=== PATIENT | male | born 1940 | race Caucasian/White ===

== ENCOUNTER 2021-11-15 08:40 | Observation (INO) | payer MEDICARE, OTHER ==
[~2021-11-15] VITALS: Ht 160 cm; Wt 71.7 kg
[2021-11-15 09:29] LABS: BASOPHILS % 0.3 % (0.0-1.0); EOSINOPHILS # (AUTO) 0.2 (0.0-0.4); EOSINOPHILS % 3.3 % (0.0-6.0); HEMATOCRIT 36.9 % (38.2-49.6); HEMOGLOBIN 11.7 g/dL (14.0-18.0); LYMPHOCYTES % 16.8 % (18.0-39.1); MEAN CORPUSCULAR HEMOGLOBIN 30.4 pg (28-32); MEAN CORPUSCULAR HGB CONC 31.7 g/dL (31-35); MEAN CORPUSCULAR VOLUME 95.8 fL (81-99); MONOCYTES # (AUTO) 0.7 (0.2-0.8); MONOCYTES % 10.9 % (4.4-11.3); NEUTROPHILS # (AUTO) 4.1 (2.1-6.9); NEUTROPHILS % 68.2 % (38.7-80.0); PLATELET COUNT 171 x10e3/uL (140-360); RED BLOOD COUNT 3.85 x10e6/uL (4.3-5.7); RED CELL DISTRIBUTION WIDTH 13.1 % (11.7-14.4)
[2021-11-15 09:40] LABS: INR 0.93; PROTHROMBIN TIME 13.3 seconds (11.9-14.5)
[2021-11-15 09:41] LABS: PARTIAL THROMBOPLASTIN TIME 25.8 seconds (23.8-35.5)
[2021-11-15 09:51] LABS: ALANINE AMINOTRANSFERASE 18 IU/L (0-55); ALBUMIN 3.5 g/dL (3.5-5.0); ALBUMIN/GLOBULIN RATIO 0.9 (0.8-2.0); ALKALINE PHOSPHATASE 69 IU/L (40-150); ANION GAP 14.4 mmol/L (8-16); BLOOD UREA NITROGEN 26 mg/dL (7-26); BUN/CREATININE RATIO 16 (6-25); CALCIUM 8.9 mg/dL (8.4-10.2); CARBON DIOXIDE 26 mmol/L (22-29); CHLORIDE 104 mmol/L (98-107); CREATINE KINASE 65 IU/L (30-200); CREATININE, SERUM 1.64 mg/dL (0.72-1.25); GLUCOSE 133 mg/dL (74-118); MAGNESIUM 2.2 MG/DL (1.3-2.1); POTASSIUM 4.4 mmol/L (3.5-5.1); SODIUM 140 mmol/L (136-145)
[2021-11-15] MEDS ORDERED: SODIUM CHLORIDE 0.9% 1000ML 1,000 ML IV SCH (11:30)
[2021-11-15 17:56] LABS: CREATINE KINASE MB 1.5 ng/mL (0-5.0)
[2021-11-15 19:00] VITALS: BP 130/51
[2021-11-15] MEDS ORDERED: ARICEPT10 MG PO (19:41)
[2021-11-15] MEDS ORDERED: LASIX20 MG PO (19:41)
[2021-11-15] MEDS ORDERED: LANTUS 3ML100 UNITS/ SQ (19:41)
[2021-11-15] MEDS ORDERED: ATORVASTATIN CA10 MG PO (19:41)
[2021-11-15] MEDS ORDERED: DEXTROSE 50%-WA50 ML IV (19:41)
[2021-11-15] MEDS ORDERED: LISINOPRIL5 MG PO (19:41)
[2021-11-15] MEDS ORDERED: cholecalciferol PO (19:41)
[2021-11-15] MEDS ORDERED: ZYPREXA5 MG PO (19:41)
[2021-11-15] MEDS ORDERED: ONDANSETRON ODT4 MG PO (19:41)
[2021-11-15] MEDS ORDERED: DOCUSATE SODIU100 MG PO (19:41)
[2021-11-15] MEDS ORDERED: JANUVIA100 MG PO (19:41)
[2021-11-15] MEDS ORDERED: NITROSTAT0.4 MG SL (19:41)
[2021-11-15] MEDS ORDERED: GLUCAGON EMERGEN1 M1 IM (19:41)
[2021-11-15] MEDS ORDERED: MAALOX MAXIMUM355 ML PO (19:41)
[2021-11-15] MEDS ORDERED: POLYETHYLENE GL17 GM PO (19:41)
[2021-11-15] MEDS ORDERED: HUMALOG100 UNIT/1 SQ (19:41)
[2021-11-15] MEDS ORDERED: MILK OF MA2400 MG/10 PO (19:41)
[2021-11-15] MEDS ORDERED: LISINOPRIL10 MG PO (19:41)
[2021-11-15] MEDS ORDERED: SENNA LAX8.6 MG PO (19:41)
[2021-11-15] MEDS ORDERED: TYLENOL325 MG PO (19:41)
[2021-11-15 20:00] VITALS: BP 130/51
[2021-11-15] MEDS ORDERED: ACETAMINOPHEN 325 MG TAB PO PRN (20:00)
[2021-11-15] MEDS ORDERED: DOCUSATE SODIUM 100 MG CAP PO PRN (20:00)
[2021-11-15] MEDS ORDERED: DEXTROSE 50% SYRINGE 50 ML IV PRN (20:00)
[2021-11-15] MEDS ORDERED: ATORVASTATIN 10 MG TAB PO SCH (21:00)
[2021-11-15] MEDS ORDERED: DONEPEZIL HCL 5 MG TAB PO SCH (21:00)
[2021-11-15] MEDS ORDERED: OLANZAPINE 5 MG TAB PO SCH (21:00)
[2021-11-15] MEDS: INSULIN LISPRO 100 UNIT/1 ML 3ML VIAL SQ SCH (21:00)
[2021-11-16 00:20] VITALS: BP 120/46
[2021-11-16 04:00] VITALS: BP 135/65
[2021-11-16 06:08] LABS: BASOPHILS % 0.3 % (0.0-1.0); EOSINOPHILS # (AUTO) 0.1 (0.0-0.4); EOSINOPHILS % 1.9 % (0.0-6.0); HEMATOCRIT 31.2 % (38.2-49.6); HEMOGLOBIN 9.9 g/dL (14.0-18.0); LYMPHOCYTES # (AUTO) 1.4 (1.0-3.2); LYMPHOCYTES % 18.4 % (18.0-39.1); MEAN CORPUSCULAR HEMOGLOBIN 30.5 pg (28-32); MEAN CORPUSCULAR HGB CONC 31.7 g/dL (31-35); MONOCYTES # (AUTO) 0.8 (0.2-0.8); MONOCYTES % 11.2 % (4.4-11.3); NEUTROPHILS % 67.8 % (38.7-80.0); PLATELET COUNT 155 x10e3/uL (140-360); RED BLOOD COUNT 3.25 x10e6/uL (4.3-5.7); RED CELL DISTRIBUTION WIDTH 13.1 % (11.7-14.4)
[2021-11-16 06:39] LABS: ALBUMIN/GLOBULIN RATIO 0.9 (0.8-2.0); ANION GAP 13.3 mmol/L (8-16); CALCIUM 8.3 mg/dL (8.4-10.2); CHOL/HDL RATIO 2.8 (3.9-4.7); CREATININE, SERUM 1.09 mg/dL (0.72-1.25); POTASSIUM 4.3 mmol/L (3.5-5.1)
[2021-11-16] MEDS: INSULIN LISPRO 100 UNIT/1 ML 3ML VIAL SQ SCH ×2 (07:30→11:30)
[2021-11-16 08:00] VITALS: BP 103/45
[2021-11-16 08:12] LABS: CREATINE KINASE 74 IU/L (30-200)
[2021-11-16 08:21] VITALS: BP 103/45
[2021-11-16 12:09] VITALS: BP 126/64
[2021-11-16 16:09] VITALS: BP 108/76
== END 2021-11-16 16:49 ==
LOC: ER 09:20 → ERHOLD 11:21 → MED/SURG2 18:52
PROVIDERS: ADMIT Internal Medicine; ATTEND Internal Medicine
DX: R55 Syncope and collapse (principal); I95.9 Hypotension, unspecified; I25.10 Atherosclerotic heart disease of native coronary artery without angina pectoris; F41.9 Anxiety disorder, unspecified; E86.0 Dehydration; E11.22 Type 2 diabetes mellitus with diabetic chronic kidney disease; N18.9 Chronic kidney disease, unspecified; G40.909 Epilepsy, unspecified, not intractable, without status epilepticus; F03.91 Unspecified dementia, unspecified severity, with behavioral disturbance; Z79.4 Long term (current) use of insulin; Z86.73 Personal history of transient ischemic attack (TIA), and cerebral infarction without residual deficits; Z20.822 Contact with and (suspected) exposure to COVID-19
CPT/HCPCS: 36415 ×2; 70450; 71045; 72125; 80053 ×2; 80061; 82550 ×2; 82553 ×2; 82948 ×2; 83735; 83880; 84484 ×2; 85025 ×2; 85610; 85730; 93005; 94799; 99284; G0378 ×2; J7030; U0002